=== PATIENT | male | born 1965 | race Caucasian/White ===

== ENCOUNTER 2017-05-10 15:21 | Emergency (ER) | payer BC ==
[2017-05-10 16:42] VITALS: O2SAT 95
--- NOTE | 2017-05-10 17:25 | ERPHSYRPT ---
- History of Present Illness Time Seen by Provider: 05/10/17 17:05 Source: patient Exam Limitations: no limitations Patient Subjective Stated Complaint: Pt complaining of lower back pain radiating into LLE. States he has a ruptured L5 disc. He has an appt with a neurosurgeon on Wednesday but the pain is unbearable. Tramadol and Soma are not touching the pain. Triage Nursing Assessment: Pt alert and oriented x3. skin pink warm and dry. afebrile Physician History: The patient is a 51-year-old male with his complaining of increased back pain and new onset of left-sided sciatica that began on Wednesday. He has a visit scheduled to see the neurosurgeon on Wednesday of next week. He said back pains for over 10 years but several months ago he was showing snow and aggravated the problem. He has tried tramadol without relief. He has no problems with urination or defecation. His past medical history significant for back pain without sciatica, asthma, and hypertension. Timing/Duration: day(s), sudden Method of Injury: unknown Quality: sharp, stabbing Back Pain Location: lumbar spine Back Pain Radiation: upper legs (left) Severity of Pain-Max: severe Severity of Pain-Current: severe Modifying Factors: Improves With: pain medication Associated Symptoms: denies symptoms, No urinary incontinence, No loss of bowel control, No muscle spasms Previous symptoms: different symptoms Allergies/Adverse Reactions: amoxicillin Allergy (Verified 05/10/17 16:54) Penicillins Allergy (Verified 05/10/17 16:54) Home Medications: Carisoprodol 350 mg [Soma 350 mg] 350 mg PO TID 05/10/17 [History] Montelukast Sodium 10 mg [Singulair 10 MG] 10 mg PO DAILY 05/10/17 [History] Nebivolol HCl 5 MG [Bystolic 5 MG] 5 mg PO DAILY 05/10/17 [History] Tramadol HCl 50 mg [Ultram 50 mg] 50 mg PO Q8H 05/10/17 [History] Hx Tetanus, Diphtheria Vaccination/Date Given: No Hx Influenza Vaccination/Date Given: Yes Hx Pneumococcal Vaccination/Date Given: No - Review of Systems Constitutional: No Fever, No Chills Eyes: No Symptoms Ears, Nose, & Throat: No Symptoms Respiratory: No Cough, No Dyspnea Cardiac: No Chest Pain, No Edema, No Syncope Abdominal/Gastrointestinal: No Abdominal Pain, No Nausea, No Vomiting, No Diarrhea Genitourinary Symptoms: No Dysuria Musculoskeletal: Back Pain Skin: No Rash Neurological: No Dizziness, No Focal Weakness, No Sensory Changes Psychological: No Symptoms Endocrine: No Symptoms Hematologic/Lymphatic: No Symptoms Immunological/Allergic: No Symptoms All Other Systems: Reviewed and Negative - Past Medical History Neurological History: No Pertinent History Cardiac History: Hypertension Respiratory History: No Pertinent History Endocrine Medical History: No Pertinent History Musculoskeletal History: Osteoarthritis Other Medical History: Pt notes a history of back pain. - Past Surgical History Past Surgical History: Yes Other Surgical History: tennis elbow - Social History Smoking Status: Never smoker Drug Use: none Patient Lives Alone: No - Nursing Vital Signs Nursing Vital Signs: Initial Vital Signs Temperature 97.8 F 05/10/17 16:41 Pulse Rate 64 05/10/17 16:41 Respiratory Rate 16 05/10/17 16:41 Blood Pressure 118/75 05/10/17 16:41 O2 Sat by Pulse Oximetry 95 05/10/17 16:41 Pain Scale Pain Intensity 10 - Physical Exam General Appearance: moderate distress Eye Exam: PERRL/EOMI, eyes nml inspection Ears, Nose, Throat Exam: normal ENT inspection Neck Exam: normal inspection, non-tender, supple, full range of motion, No meningismus, No midline tenderness Respiratory Exam: normal breath sounds, lungs clear, No respiratory distress Cardiovascular Exam: regular rate/rhythm, normal heart sounds Gastrointestinal Exam: soft, No tenderness, No mass Rectal Exam: not done Back Exam: decreased range of motion, other (Straight leg raise of the left leg is positive at 10.), No muscle spasm Extremity Exam: normal inspection, normal range of motion, No calf tenderness, No pedal edema Neurologic Exam: alert, oriented x 3, cooperative, business continuity analyst II-XII nml as tested, normal mood/affect, nml station & gait, sensation nml, No motor deficits Skin Exam: normal color, warm, dry, No rash SpO2 Interpretation: normal SpO2: 95 Oxygen Delivery: Room Air - Progress Progress: improved, pain not gone completely Counseled pt/family regarding: diagnosis, need for follow-up - Departure Time of Disposition: 17:28 Departure Disposition: Home Clinical Impression: Back pain with sciatica Condition: Stable Critical Care Time: No Referrals: DOCTOR,NO FAMILY [Primary Care Provider] - Additional Instructions: You have low back pain with left-sided sciatica. You were given Decadron 10 mg , Toradol 60 mg, and Dilaudid 1 mg by IM injection in the ER. Take Percocet one tablet every 4-6 hours as needed for pain. Apply ice to your back as needed. Follow-up as scheduled with the neurosurgeon on Wednesday. Prescriptions: Oxycodone HCl/Acetaminophen [Percocet 7.5-325 mg Tablet] 1 each PO Q4-6HPRN PRN #10 tablet PRN Reason: Pain
[2017-05-10] MEDS ORDERED: DECADRON 10MG INJ. IM ONE (17:28)
[2017-05-10] MEDS ORDERED: Hydromorphone 1 mg/ml Ampule IM ONE (17:29)
[2017-05-10] MEDS ORDERED: TORAdol 30 mg Injection IM ONE (17:29)
[2017-05-10] MEDS ORDERED: DECADRON 10MG INJ. ONE (17:34)
[2017-05-10] MEDS ORDERED: Hydromorphone 1 mg/ml Ampule ONE (17:35)
[2017-05-10] MEDS ORDERED: TORAdol 30 mg Injection ONE (17:35)
[2017-05-10 18:15] VITALS: BP 113/80; PULSE 66
== END 2017-05-10 18:19 | disposition home or self-care (01) ==
LOC: ED 15:21
DX: M54.30 Sciatica, unspecified side (principal); M54.9 Dorsalgia, unspecified; M54.5 Low back pain
CPT/HCPCS: 96372; 99284; J1100; J1170; J1885

== ENCOUNTER 2018-01-31 07:22 | Emergency (ER) | payer BC ==
[2018-01-31] MEDS ORDERED: Adacel Vial IM ONE ×2 (07:56→08:00)
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
[2018-01-31] MEDS ORDERED: BACIGUENT PACKET ONE (08:18)
[2018-01-31] MEDS ORDERED: BACIGUENT PACKET TP ONE (08:18)
[2018-01-31 08:28] VITALS: BP 135/96; PULSE 64
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
[2018-01-31 08:51] VITALS: O2SAT 100
== END 2018-01-31 09:13 | disposition home or self-care (01) ==
LOC: ED 07:22
DX: S16.1XXA Strain of muscle, fascia and tendon at neck level, initial encounter (principal); M54.2 Cervicalgia; S50.811A Abrasion of right forearm, initial encounter; V53.5XXA Driver of pick-up truck or van injured in collision with car, pick-up truck or van in traffic accident, initial encounter; Y99.0 Civilian activity done for income or pay
CPT/HCPCS: 72125; 80307; 90471; 90715; 99284; A9270-GY